=== PATIENT | male | born 1990 | race Caucasian/White ===

== ENCOUNTER 2017-09-21 02:07 | Emergency (ER) | payer SELFPAY ==
[~2017-09-21] VITALS: Ht 182.9 cm; Wt 83.9 kg
[2017-09-21] MEDS ORDERED: ONDANSETRON HCL 4 MG/2 ML VIAL IV ONE (02:15)
[2017-09-21] MEDS ORDERED: HYDROmorphone HCL 2 MG/ML VL IV ONE (02:15)
[2017-09-21] MEDS ORDERED: PROMETHAZINE HCL 25 MG/ML 1ML ONE (02:24)
[2017-09-21] MEDS ORDERED: PROMETHAZINE HCL 25 MG/ML 1ML IV ONE (02:45)
[2017-09-21 05:05] VITALS: BP 114/60
== END 2017-09-21 04:35 ==
LOC: ER 02:07
DX: T20.10XA Burn of first degree of head, face, and neck, unspecified site, initial encounter (principal); X08.8XXA Exposure to other specified smoke, fire and flames, initial encounter; Y93.89 Activity, other specified; Y99.8 Other external cause status; Y92.89 Other specified places as the place of occurrence of the external cause
CPT/HCPCS: 96374; 96375; 99284; J1170; J2550